=== PATIENT | female | born 1990 ===

== ENCOUNTER → 2023-02-16 | Outpatient (CLI) | payer BC ==
[2023-02-16 15:18] LABS: Progesterone 7.96 ng/mL
== END | disposition home or self-care (01) ==
LOC: LAB SHORT 13:58 → LAB 13:58
PROVIDERS: Family Medicine
DX: O20.0 Threatened abortion (principal)
CPT/HCPCS: 84144; 84702

== ENCOUNTER → 2023-02-19 | Outpatient (CLI) | payer BC | LOC: LAB 13:44 → LAB SHORT 13:44 | DX: O20.0 Threatened abortion (principal) | CPT/HCPCS: 84702 ==

== ENCOUNTER → 2023-03-01 | Outpatient (CLI) | payer BC | END | disposition home or self-care (01) | LOC: LAB SHORT 16:04 → LAB 16:04 | DX: O20.0 Threatened abortion (principal) | CPT/HCPCS: 84702 ==

== ENCOUNTER → 2023-03-04 | Outpatient (CLI) | payer BC | END | disposition home or self-care (01) | LOC: LAB SHORT 09:35 → LAB 09:35 | DX: Z33.1 Pregnant state, incidental (principal) | CPT/HCPCS: 84702 ==